=== PATIENT | male | born 1975 | race Caucasian/White ===

== ENCOUNTER → 2016-09-26 | Outpatient (CLI) | payer OTHER ==
[~2016-09-26] VITALS: Ht 179.1 cm; Wt 112.5 kg
[~2016-09-26] MED LIST: AMPH20TA2 PO; BUPR1MIS PO; CETI10TA84 PO; DOCU-94 PO; LISI20TA3 PO; SYN75 PO
[2016-09-26 12:42] VITALS: BP 125/79; PULSE 71; Ht 179.1 cm; Wt 112.5 kg
== END | disposition home or self-care (01) ==
LOC: C.NEUR 12:17
PROVIDERS: ATTEND Internal Medicine Pulmonary Disease
DX: G47.33 Obstructive sleep apnea (adult) (pediatric) (principal)

== ENCOUNTER 2017-09-25 02:56 | Emergency (ER) | payer OTHER ==
[~2017-09-25] VITALS: Ht 177.8 cm; Wt 113.4 kg
[2017-09-25 03:00] VITALS: TEMP 36.8; Ht 177.8 cm; Wt 113.4 kg
[2017-09-25] MEDS ORDERED: BUPR1SUB23 SL (03:45)
[2017-09-25] MEDS ORDERED: FLNIN/ NAE (03:45)
[2017-09-25] MEDS ORDERED: AZEL0.1S2 NAE (03:45)
[2017-09-25] MEDS ORDERED: ATOR10TA82 PO (03:46)
[2017-09-25] MEDS ORDERED: LEVO100T7 PO (03:47)
[2017-09-25] MEDS ORDERED: VLT/75 PO (03:48)
[2017-09-25] MEDS ORDERED: CLC100 PO (03:48)
[2017-09-25 04:03] LABS: BASO % 0.4 %; BASO ABS # 0.03 K/uL (0-0.2); HEMATOCRIT 37.4 % (42-52); HEMOGLOBIN 13.1 g/dL (14.0-18.0); IG# 0.01 K/uL (0.00-0.02); LYMPH % 31.1 %; LYMPH ABS # 2.36 K/uL (1.2-3.4); MEAN CELL VOLUME 86.2 fL (80-100); MEAN CORPUSCULAR HEMOGLOBIN 30.2 pg (25-34); MEAN PLATELET VOLUME 9.7 fL (7.4-10.4); MONO % 6.2 %; MONO ABS # 0.47 K/uL (0.11-0.59); NEUT % 58.2 %; NEUT ABS # 4.42 K/uL (1.4-6.5); PLATELET COUNT 245 K/uL (130-400); RED CELL DISTRIBUTION WIDTH CV 14.1 % (11.5-14.5); RED CELL DISTRIBUTION WIDTH SD 44.4 fL (36.4-46.3); WHITE BLOOD COUNT 7.59 K/uL (4.8-10.8)
[2017-09-25 04:26] LABS: ALBUMIN 3.6 gm/dl (3.4-5.0); ALT/SGPT 43 U/L (12-78); AST/SGOT 24 U/L (15-37); BLOOD UREA NITROGEN 17 mg/dl (7-18); CALCIUM 8.8 mg/dl (8.5-10.1); CARBON DIOXIDE 28 mmol/L (21-32); CREATININE 0.91 mg/dl (0.60-1.40); GLUCOSE 120 mg/dl (70-99); SODIUM 140 mmol/L (136-145)
[2017-09-25 04:36] LABS: ALKALINE PHOSPHATASE 77 U/L (45-117); TOTAL PROTEIN 6.6 gm/dl (6.4-8.2)
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
[2017-09-25] MEDS ORDERED: LEVOTHYROXINE 100 MCG TAB PO STA (06:47)
[2017-09-25] MEDS ORDERED: LISINOPRIL 20 MG TAB PO STA (06:47)
[2017-09-25] MEDS ORDERED: CETIRIZINE HCL 10 MG TAB PO ONE (07:00)
[2017-09-25] MEDS ORDERED: NICOTINE 21 MG/24 HR TDSY TD STA (07:12)
--- NOTE | 2017-09-25 07:15 | EMERGENCY ROOM VISIT NOTE ---
ED Visit Note Received patient in signout. Patient is here under a 302 warrant. He later became agreeable to admission and was independently evaluated by both can help as well as psychiatric liaison. They both felt that the patient could sign a 201. The patient was given Ativan here in the emergency department and was complaining of a headache. He has no evidence of meningitis encephalitis on examination. I offered to do a CAT scan of the head for this patient's head a but he is adamantly refusing. He reports he gets migraines and this feels similar to his migraine. He was given aspirin as well as Tylenol and ibuprofen here in the emergency department. He was transferred further incident. Current/Historical Medications Scheduled Amphetamine-Dextroamphetamine 20MG (Adderall 20MG), 1 TAB PO BID Atorvastatin (Lipitor), 10 MG PO DAILY Azelastine HCl (Azelastine Hydrochloride), 2 SPRAYS ELVIA BID Buprenorphine Hcl-Naloxone Hcl (Suboxone 8-2 Mg), 1 TAB SL BID Cetirizine (Zyrtec), 10 MG PO DAILY Docusate Sodium (Docusate Sodium), 100 MG PO DAILY Fluticasone Propionate (Fluticasone Propionate), 2 SPRAYS ELVIA DAILY Levothyroxine Sodium (Levothyroxine Sodium), 100 MCG PO DAILY Lisinopril (Prinivil), 20 MG PO QAM Scheduled PRN Diclofenac Sod (Diclofenac Sodium Dr), 75 MG PO Q12 PRN for Pain Allergies Coded Allergies: Acetaminophen (Verified Allergy, Mild, 09/25/17) Ibuprofen (Verified Allergy, Mild, HIVES, 09/25/17) Ketorolac (Verified Allergy, Mild, SWELLING, 09/25/17) Naproxen (Verified Allergy, Mild, HIVES, 09/25/17) Vital Signs Date Time Temp Pulse Resp B/P (MAP) Pulse Ox O2 Delivery O2 Flow Rate FiO2 09/25/17 12:30 92 18 165/94 98 Room Air 09/25/17 10:54 78 18 162/98 100 Room Air 09/25/17 10:20 83 18 175/109 100 Room Air 09/25/17 10:20 82 09/25/17 05:16 94 18 157/89 95 Room Air 09/25/17 03:00 36.8 102 20 152/90 95 Room Air Laboratory Results 09/25/17 03:46 Red Blood Count 4.34, Mean Corpuscular Volume 86.2, Mean Corpuscular Hemoglobin 30.2, Mean Corpuscular Hemoglobin Concent 35.0, Mean Platelet Volume 9.7, Neutrophils (%) (Auto) 58.2, Lymphocytes (%) (Auto) 31.1, Monocytes (%) (Auto) 6.2, Eosinophils (%) (Auto) 4.0, Basophils (%) (Auto) 0.4, Neutrophils # (Auto) 4.42, Lymphocytes # (Auto) 2.36, Monocytes # (Auto) 0.47, Eosinophils # (Auto) 0.30, Basophils # (Auto) 0.03 09/25/17 03:46 Test 09/25/17 03:10 09/25/17 03:46 Urine Color YELLOW Urine Appearance CLOUDY (CLEAR) Urine pH 8.5 (4.5-7.5) Urine Specific [place] 1.025 (1.000-1.030) Urine Protein NEG (NEG) Urine Glucose (UA) NEG (NEG) Urine Ketones NEG (NEG) Urine Occult Blood NEG (NEG) Urine Nitrite NEG (NEG) Urine Bilirubin NEG (NEG) Urine Urobilinogen NEG (NEG) Urine Leukocyte Esterase TRACE (NEG) Urine WBC (Auto) 1-5 /hpf (0-5) Urine RBC (Auto) 0-4 /hpf (0-4) Urine Hyaline Casts (Auto) 0 /lpf (0-5) Urine Epithelial Cells (Auto) 5-10 /lpf (0-5) Urine Bacteria (Auto) NEG (NEG) Urine Opiates Screen NEG (NEG) Urine Methadone, Qualitative NEG (NEG) Urine Barbiturates NEG (NEG) Urine Phencyclidine (PCP) Level NEG (NEG) Ur Amphetamine/Methamphetamine POS (NEG) MDMA (Ecstasy) Screen NEG (NEG) Urine Benzodiazepines Screen NEG (NEG) Urine Cocaine Metabolite NEG (NEG) Urine Marijuana (THC) NEG (NEG) White Blood Count 7.59 K/uL (4.8-10.8) Red Blood Count 4.34 M/uL (4.7-6.1) Hemoglobin 13.1 g/dL (14.0-18.0) Hematocrit 37.4 % (42-52) Mean Corpuscular Volume 86.2 fL (80-100) Mean Corpuscular Hemoglobin 30.2 pg (25-34) Mean Corpuscular Hemoglobin Concent 35.0 g/dl (32-36) Platelet Count 245 K/uL (130-400) Mean Platelet Volume 9.7 fL (7.4-10.4) Neutrophils (%) (Auto) 58.2 % Lymphocytes (%) (Auto) 31.1 % Monocytes (%) (Auto) 6.2 % Eosinophils (%) (Auto) 4.0 % Basophils (%) (Auto) 0.4 % Neutrophils # (Auto) 4.42 K/uL (1.4-6.5) Lymphocytes # (Auto) 2.36 K/uL (1.2-3.4) Monocytes # (Auto) 0.47 K/uL (0.11-0.59) Eosinophils # (Auto) 0.30 K/uL (0-0.5) Basophils # (Auto) 0.03 K/uL (0-0.2) RDW Standard Deviation 44.4 fL (36.4-46.3) RDW Coefficient of Variation 14.1 % (11.5-14.5) Immature Granulocyte % (Auto) 0.1 % Immature Granulocyte # (Auto) 0.01 K/uL (0.00-0.02) Anion Gap 7.0 mmol/L (3-11) Est Creatinine Clear Calc Drug Dose 130.6 ml/min Estimated GFR () 118.4 Estimated GFR (Non- 102.1 BUN/Creatinine Ratio 18.4 (10-20) Calcium Level 8.8 mg/dl (8.5-10.1) Total Bilirubin 0.3 mg/dl (0.2-1) Direct Bilirubin < 0.1 mg/dl (0-0.2) Aspartate Amino Transf (AST/SGOT) 24 U/L (15-37) Alanine Aminotransferase (ALT/SGPT) 43 U/L (12-78) Alkaline Phosphatase 77 U/L (45-117) Total Protein 6.6 gm/dl (6.4-8.2) Albumin 3.6 gm/dl (3.4-5.0) Thyroid Stimulating Hormone (TSH) 3.420 uIu/ml (0.300-4.500) Salicylates Level 1.7 mg/dl (2.8-20) Acetaminophen Level < 2 ug/ml (10-30) Ethyl Alcohol mg/dL < 3.0 mg/dl (0-3) Medications Administered Medications (Trade) Dose Ordered Sig/Silvia Route Start Time Stop Time Status Last Admin Dose Admin Lisinopril (Zestril Tab) 20 mg NOW STAT PO 09/25/17 06:47 09/25/17 06:49 DC 09/25/17 07:21 20 MG Levothyroxine Sodium (Synthroid Tab) 100 mcg NOW STAT PO 09/25/17 06:47 09/25/17 06:49 DC 09/25/17 07:21 100 MCG Cetirizine HCl (zyrTEC TAB) 10 mg NOW ONCE PO 09/25/17 07:00 09/25/17 07:01 DC 09/25/17 07:21 10 MG Nicotine (Nicoderm Cq 21MG Patch) 1 patch NOW STAT TD 09/25/17 07:12 09/25/17 07:13 DC 09/25/17 07:22 1 PATCH Aspirin (Aspirin Chew) 324 mg NOW STAT PO 09/25/17 09:25 09/25/17 09:27 DC 09/25/17 10:11 324 MG Lorazepam (Ativan Tab) 2 mg NOW STAT SL 09/25/17 10:48 09/25/17 10:49 DC 09/25/17 10:54 2 MG Ibuprofen (Advil Tab) 200 mg STK-MED ONCE .ROUTE 09/25/17 12:01 09/25/17 12:02 DC 09/25/17 12:05 200 MG Departure Information Impression Primary Impression: Mood disorder Referrals No Doctor, Assigned Patient Instructions [facility]
[2017-09-25] MEDS ORDERED: ASPIRIN 81 MG CHEW PO STA (09:25)
[2017-09-25] MEDS ORDERED: LORAZEPAM 1 MG TAB SL STA (10:48)
[2017-09-25] MEDS ORDERED: IBUPROFEN 200 MG TAB ONE (12:01)
[2017-09-25 12:30] VITALS: BP 165/94; PULSE 92; O2SAT 98
== END 2017-09-25 12:38 ==
LOC: C.EDB 02:58 → C.EDA 12:38
DX: F39 Unspecified mood [affective] disorder (principal); R51 Headache; I10 Essential (primary) hypertension; E78.5 Hyperlipidemia, unspecified; E05.90 Thyrotoxicosis, unspecified without thyrotoxic crisis or storm; Z79.899 Other long term (current) drug therapy; Z88.6 Allergy status to analgesic agent; Z88.8 Allergy status to other drugs, medicaments and biological substances; F17.200 Nicotine dependence, unspecified, uncomplicated

== ENCOUNTER → 2017-12-24 | Outpatient (CLI) | payer OTHER ==
[~2017-12-24] VITALS: Ht 179.1 cm; Wt 115.9 kg
[~2017-12-24] MED LIST changes: +ATOR10TA82 PO; +AZEL0.1S2 NAE; -BUPR1MIS PO; +BUPR1SUB23 SL; +CLC100 PO; -DOCU-94 PO; +FLNIN/ NAE; +LEVO100T7 PO; -SYN75 PO; +VLT/75 PO
[2017-12-24 15:38] VITALS: BP 146/85; PULSE 81; Ht 179.1 cm; Wt 115.9 kg
== END | disposition home or self-care (01) ==
LOC: C.NEUR 14:44
PROVIDERS: ATTEND Internal Medicine Pulmonary Disease
DX: G47.33 Obstructive sleep apnea (adult) (pediatric) (principal)